=== PATIENT | male | born 2005 | race African-American/Black ===

== ENCOUNTER 2024-10-11 23:46 | Emergency (ER) | payer SELFPAY ==
[~2024-10-11] VITALS: Ht 182.9 cm; Wt 78.0 kg
[2024-10-12] VITALS: O2SAT 100
[2024-10-12] MEDS: SODIUM CHLORIDE 0.9% 1,000 ML IV ONE (00:04)
[2024-10-12] MEDS: TETANUS, DIPHTHERIA, PERTUSSIS VAC/PF 0.5ML (>10YR OLD) IM ONE (00:04)
[2024-10-12] MEDS: ONDANSETRON HCL 4MG/2ML INJ IV ONE (00:05)
[2024-10-12] MEDS: CEFAZOLIN 1000MG PREMIX 50 ML IV ONE (00:16)
[2024-10-12 00:37] VITALS: BP 143/92; PULSE 69; TEMP 36.9; O2SAT 99
[2024-10-12 00:41] VITALS: RESP 9
[2024-10-12] MEDS: MORPHINE SULFATE 4 MG/ML INJ (FOR IV/IM USE) IV ONE (00:41)
== END 2024-10-12 00:58 | disposition short-term general hospital (02) ==
LOC: ER 23:53
DX: S45.8 Injury of other specified blood vessels at shoulder and upper arm level (principal); W34.00XA Accidental discharge from unspecified firearms or gun, initial encounter; Y93.89 Activity, other specified; Y92.89 Other specified places as the place of occurrence of the external cause; Y99.8 Other external cause status
CPT/HCPCS: 99291; 73060; 90715; 96365; 96375; 71045; 93005; 90471; J2405; J2270; J0690; J7030